=== PATIENT | male | born 1990 | race Caucasian/White ===

== ENCOUNTER 2021-04-19 00:58 | Emergency (ER) | payer SELFPAY ==
--- NOTE | 2021-04-19 02:12 | EDM.PDOC ---
ED HPI GENERAL MEDICAL PROBLEM - General Chief Complaint: ENT Problem Stated Complaint: LEFT EYE IRRITATION Time Seen by Provider: 04/19/21 01:54 Source of Information: Reports: Patient, Family (spouse) History Limitations: Reports: No Limitations - History of Present Illness INITIAL COMMENTS - FREE TEXT/NARRATIVE: 31-year-old male presents to the ED with foreign body sensation left eye since yesterday afternoon. He was blowing off some shells which contain dust and perhaps metal fragments with an air hose yesterday. Foreign body sensation is felt up underneath his eyelid and medial canthus of the eye. He does wear contact lenses and when he put the contact lens in this morning it seemed to ease the pain. However since he took it out tonight he has recurrence of fore ign body sensation with excessive tearing and light sensitivity. 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: Other (see below) (None.) Left Eye Pain Score (Numeric/FACES): 4 - Related Data Allergies Allergy/AdvReac Type Severity Reaction Status Date / Time No Known Allergies Allergy Verified 04/19/21 01:44 Past Medical History - Past Health History Medical/Surgical History: Denies Medical/Surgical History - Infectious Disease History Infectious Disease History: Reports: None Social & Family History - Tobacco Use Tobacco Use Status *Q: Current Every Day Tobacco User Years of Tobacco use: 15 Packs/Tins Daily: 1 - Caffeine Use Caffeine Use: Reports: Coffee, Energy Drinks - Recreational Drug Use Recreational Drug Use: No - Living Situation & Occupation Living situation: Reports: Single Occupation: Employed ED ROS GENERAL - Review of Systems Review Of Systems: See Below Constitutional: Reports: No Symptoms HEENT: Reports: Contact Lenses (Removed left eye contact lens after work tonight.), Glasses Respiratory: Reports: No Symptoms Cardiovascular: Reports: No Symptoms Endocrine: Reports: No Symptoms GI/Abdominal: Reports: No Symptoms : Reports: No Symptoms Musculoskeletal: Reports: No Symptoms Skin: Reports: No Symptoms Neurological: Reports: No Symptoms Psychiatric: Reports: No Symptoms Hematologic/Lymphatic: Reports: No Symptoms ED EXAM GENERAL W FULL EYE - Physical Exam Exam: See Below Exam Limited By: No Limitations General Appearance: Alert, WD/WN, Mild Distress, Other (Temperature is 37.0 with a heart rate of 79 in sinus respiratory is 18 with O2 sats of 99% room air. BP is 141/91.) Eye Exam: Left Eye: Conjunctival Injection (Him digging around in his eye he has significant conjunctival injection medial canthus), Corneal Abrasion (Small linear corneal abrasion at the 8 o'clock position traveling towards the 7 o'clock position 4 mm from the limbus.), Bilateral Eye: Foreign Body (No foreign bodies identified), PERRL Eyelids: Left: Normal Appearance, Lid Everted for Exam (No foreign body identified. Eyelid swept with proparacaine soaked Q-tip.) Conjunctiva & Sclera: Left: Conjunctival Edema (Mild on the left side), Injected (Medial canthus.) Cornea Exam: Left: Corneal Abrasion (Small 2 mm linear corneal abrasion appreciated on slit-lamp examination 8 o'clock position traveling towards the 7 o'clock position 4 mm from the limbus), Examined with Flourescein, Bilateral: Cloudy Cornea (1 he is clear and crisp with no foreign bodies identified) Pupillary Size: Bilateral: 7 mm Pupillary Reaction: Bilateral: Brisk Anterior Chamber: Left: Normal Appearance Course - Vital Signs Last Recorded V/S: Last Vital Signs Temp 37.0 C 04/19/21 01:42 Pulse 79 04/19/21 01:42 Resp 18 04/19/21 01:42 BP 141/91 H 04/19/21 01:42 Pulse Ox 99 04/19/21 01:42 - Orders/Labs/Meds Meds: Medications Discontinued Medications Generic Name Dose Route Start Last Admin Trade Name Freq PRN Reason Stop Dose Admin Ketorolac Tromethamine 0 ml 04/19/21 02:08 Ketorolac 0.5% Ophth Soln 5 Ml Bottle EYELF 04/19/21 02:09 ONETIME ONE - Radiology Interpretation Free Text/Narrative:: 31-year-old male presents to the ED for evaluation of foreign body sensation left eye since taking his contact lens out after work last evening. He thinks he he has had foreign body sensation left eye in the morning prior to putting his contact lenses this is in which seemed to relieve the discomfort until he took the contact lens out. He has been digging around the medial cath of his of his eye thinking there might be a crenated contact lens curled up in the medial canthus but none was identified. On my examination he does have a corneal abrasion on slit-lamp exam at the 8 o'clock position approximately 2 mm in length traveling from 8:00 to 7 o'clock position. The cornea and anterior chamber are clear. Lid everted with no positive findings no foreign bodies identified. There is a significant injection of the medial conjunctiva due to irritation but no foreign bodies identified other than a eyelash that I removed with a moistened Q-tip. Patient will be treated with ketorolac eyedrops 1 drop to the eye every 6 hours for 1 day. Ciprofloxacin ophthalmic drops 2 drops to the left eye every 8 hours for the next 2 days to prevent secondary infection. Follow-up advised if not back to normal in 24 to 36 hours time Departure - Departure Time of Disposition: 02:09 Disposition: Home, Self-Care 01 Condition: Fair Clinical Impression: Corneal abrasion Qualifiers: Encounter type: initial encounter Laterality: left Qualified Code(s): S05.02XA - Injury of conjunctiva and corneal abrasion without foreign body, left eye, initial encounter - Discharge Information *PRESCRIPTION DRUG MONITORING PROGRAM REVIEWED*: Not Applicable *COPY OF PRESCRIPTION DRUG MONITORING REPORT IN PATIENT JUAN: Not Applicable Instructions: Corneal Abrasion Referrals: PCP,None [Primary Care Provider] - Forms: ED Department Discharge, ED Return to Work/School Form Additional Instructions: Evaluation in the emergency room today in regards to foreign body sensation left eye. Associated excessive blinking and tearing with light sensitivity. Examination did not reveal any foreign bodies on the cornea or up under your eyelid or in the medial canthus of the eye. Bubbles identified on the conjunctiva have formed due to mucus in this area and disappear with blinking. No foreign body such as a contact lens was identified. I did remove a eyelash from the area with a Q-tip. There is a corneal abrasion at the 8 o'clock position near the middle of the cornea. This is fairly superficial but will take about 24 hours to heal completely. Suggest ketorolac eyedrops 2 drops to the left eye every 6 hours as needed for relief of pain and inflammation. Antibiotic is to be ciprofloxacin eyedrops which you already have 2 drops every 8 hours for 2 days to prevent secondary infection. The drops to be placed at least 5 minutes apart from each other so they do not wash each other out. Expect marked improvement over the next 24 to 36 hours. If not completely back to normal in 36 hours you should be reviewed again either in the ED or by eligibility counselor. Current redness of the medial canthus of your eye appears to be more from irritation of the conjunctiva. Sepsis Event Note (ED) - Evaluation Sepsis Screening Result: No Definite Risk - Focused Exam Vital Signs: Vital Signs Temp Pulse Resp BP Pulse Ox 04/19/21 01:42 37.0 C 79 18 141/91 H 99
[2021-04-19] MEDS: Ketorolac 0.5% Ophth Soln 5 ML Bottle EYELF ONE (02:30)
== END 2021-04-19 02:44 | disposition home or self-care (01) ==
LOC: JD.ED 00:58
DX: S05.02XA Injury of conjunctiva and corneal abrasion without foreign body, left eye, initial encounter (principal); Z72.0 Tobacco use; W22.8XXA Striking against or struck by other objects, initial encounter
CPT/HCPCS: 65220; 99283; A9270